=== PATIENT | female | born 2000 | race Caucasian/White ===

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

== ENCOUNTER → 2021-02-09 02:00 | Outpatient (CLI) | payer OTHER, SELFPAY ==
[2021-02-09 19:43] LABS: SARS-CoV-2 RNA PCR Negative
== END ==
PROVIDERS: PCP Pediatrics Adolescent Medicine; Visit Provider Internal Medicine Gastroenterology
DX: Z01.812 Encounter for preprocedural laboratory examination (principal); Z20.822 Contact with and (suspected) exposure to COVID-19
CPT/HCPCS: C9803; U0003; U0005

== ENCOUNTER 2021-02-12 02:29 | Day surgery (SDC) | payer OTHER, SELFPAY ==
[2021-01-31 15:30] VITALS: BMI 30.8
[2021-02-12 09:44] VITALS: BP 109/60; PULSE 56; RESP 18; TEMP 36.1; O2SAT 99; BMI 30.4
--- NOTE | 2021-02-12 09:51 | P.PNAN_ITS ---
Anes - Initial Pre Proc Eval Procedure: Operation Date: 02/12/21 11:00 Proposed Procedures p Esophagogastroduodenoscopy - Evan Villa MD Date/Time: 02/12/21 09:51 Surgeon: Evan Villa MD Pre Op Diagnosis: epigastric pain Patient Data Age: 20 Gender: F Height: 1.6 m Weight: 77.9 kg Last Vital Signs Temp 36.1 C L 02/12/21 09:44 Pulse 56 L 02/12/21 09:44 Resp 18 02/12/21 09:44 BP 109/60 02/12/21 09:44 Pulse Ox 99 02/12/21 09:44 Allergies Allergy/AdvReac Type Severity Reaction Status Date / Time Penicillins Allergy Unknown Rash Verified 02/12/21 09:43 Home Medications Medication Instructions Recorded Confirmed Type drospirenone-ethinyl estradiol 1 tablet PO DAILY 01/31/21 01/31/21 History [Jasmin (28)] omeprazole 40 mg PO DAILY 01/31/21 01/31/21 History Patient hx anesthesia problems: none Family hx anesthesia problems: none [facility] Past Medical History Medical History (Updated 02/11/21 @ 09:43 by Salvatore Rodas DO) GERD (gastroesophageal reflux disease) Social History Social History (Updated 06/26/20 @ 19:36 by Umer Alamo PA-C) Smoking status: Never smoker Living arrangements: with family Gender identity (if verbalized by the patient): Female Spiritual care concerns: No Anes - Eval Final PreProcedure Day of Procedure 02/12/21 09:51 Patient weight: obese Heart: regular rate and rhythm Lungs: clear to auscultation and normal air movement Airway: Mallampati scale class 1 Neurological: alert and oriented Last oral intake: >/= 8 hours ASA classification: II Emergent: no Anesthetic plan: proceed Anesthesia type and monitoring: general GIVS and standard monitoring Informed Consent: The patient's anesthetic plan and its attendant risks and benefits were discussed with the patient/family/POA. Questions were solicited and answers provided to the satisfaction of the patient/family/POA.
[2021-02-12] MEDS: LACTATED RINGERS 1,000 ML 150 ML IV CONT (10:00)
--- NOTE | 2021-02-12 10:19 | WPDGICN ---
Assessment and Plan Assessment and plan (1) Epigastric abdominal pain: Code(s): R10.13 - Epigastric pain Status: Acute Assessment and Plan: Three month history of epigastric pain. This most consistent with dyspepsia. Agree with acid suppression and anti-reflux measures bland diet. Plan is for EGD to assess more thoroughly. Further recommendations will be given after endoscopy. GI Consult Note Consult date/time: 02/12/21 10:19 HPI: Keya Lee is a 20 year old female Presents for evaluation of epigastric pain. Patient describes a 3 month duration of midepigastric burning pain. Somewhat worse on taking eliminate. She has recently a limited dated ascitic drinks. She has not tried Tums or Rolaids. However was prescribed [id number] acid suppression currently omeprazole 40 mg p.o. daily. She states this has helped her pain improved. She denies any weight loss or bleeding. She presents today for EGD. During this interval of time is present emergency room with no other obvious explanation for her discomfort. Family history is noncontributory. Review of Systems Review of Systems: All systems reviewed & are unremarkable except as noted in HPI and below PMFSH Past Medical History Medical History (Updated 02/12/21 @ 10:21 by Evan Villa MD) GERD (gastroesophageal reflux disease) Social History Social History (Updated 06/26/20 @ 19:36 by Umer Alamo PA-C) Smoking status: Never smoker Living arrangements: with family Gender identity (if verbalized by the patient): Female Spiritual care concerns: No Meds Home Medications and Allergies Home Medications Medication Instructions Recorded Confirmed Type drospirenone-ethinyl estradiol 1 tablet PO DAILY 01/31/21 01/31/21 History [Jasmin (28)] omeprazole 40 mg PO DAILY 01/31/21 01/31/21 History Allergies Allergy/AdvReac Type Severity Reaction Status Date / Time Penicillins Allergy Unknown Rash Verified 02/12/21 09:43 Vital Signs Vital Signs - 24 hr 02/12/21 09:44 Temperature 97 F L Pulse Rate 56 L Respiratory Rate 18 Blood Pressure 109/60 Pulse Oximetry 99 Exam Narrative: Exam Narrative: Physical exam reveals patient be alert. Vital signs stable. HEENT exam is unremarkable. Lungs are clear to auscultation and percussion. Heart is without murmur or extra sounds. Abdominal exam bowel sounds are present soft nontender with no organomegaly. Digital external rectal exam is deferred.
[2021-02-12 10:39] VITALS: BP 107/69; PULSE 72; RESP 22; O2SAT 100
[2021-02-12 10:49] VITALS: BP 120/65; PULSE 70; RESP 12; O2SAT 100
[2021-02-12 10:59] VITALS: BP 121/57; PULSE 49; RESP 19; O2SAT 100
== END 2021-02-12 11:15 | disposition home or self-care (01) ==
PROVIDERS: PCP Nurse Practitioner Family; Visit Provider Internal Medicine Gastroenterology
PROC: 0DJ08ZZ Inspection of Upper Intestinal Tract, Via Natural or Artificial Opening Endoscopic (ICD-10-PCS; CPT 43235; principal; 2021-02-12 11:00)
DX: R10.13 Epigastric pain (principal); K21.9 Gastro-esophageal reflux disease without esophagitis
CPT/HCPCS: 43239; 87081; C9803; J2001; J2704; J7120; U0003; U0005

== ENCOUNTER 2021-02-25 09:51 | Emergency (ER) | payer OTHER, SELFPAY ==
--- NOTE | ~2021-02-25 | CT_ITS ---
EXAMINATION: CT abdomen pelvis w con DATE: 02/25/2021 11:16 INDICATION: Right lower quadrant abdominal pain. Nausea and vomiting. TECHNIQUE: Computed tomography (CT) of the abdomen and pelvis was performed with 100 mL Omnipaque 350 intravenous contrast. Automated exposure control and iterative reconstruction technique were employe d. The dose-length product was 509.70 mGy-cm. COMPARISON: None. FINDINGS: The visualized portions of the lung bases are clear without pneumonia or pleural effusion. The heart size is normal. No pericardial effusion. The liver and gallbladder are normal. There is a 6 mm cyst in the spleen. The pancreas, adrenal glands, and left kidney are normal. There is a striated nephrogram involving right kidney, consistent with pyelonephritis. There are no dilated loops of bow el. The appendix is normal. There is trace ascites. There are no pathologically enlarged lymph nodes. The bones are unremarkable. IMPRESSION: 1. Right-sided pyelonephritis. Reviewed, dictated and finalized at location A.
[2021-02-25 09:57] VITALS: BP 145/90; PULSE 102; RESP 18; TEMP 36.6; O2SAT 100
--- NOTE | 2021-02-25 10:11 | ED.ABDPAIN ---
HPI - Abdominal Pain General Chief Complaint: Abdominal Pain Stated Complaint: rt abd and rt flank pain, n/v Time Seen by Provider: 02/25/21 10:06 Source: patient and family Mode of arrival: ambulatory Limitations: no limitations History of Present Illness HPI narrative: Patient is 20 years old white female presents with right lower quadrant pain radiating to right flank started on February 22, intermittent, patient denies any fever, or chills. Patient was nauseated and vomited once 2 days ago. No nausea or vomiting yesterday or today. Last bowel movement 5 days ago, last menstrual period over 1 month ago. Patient denies any vaginal bleeding or discharge. Related Data Home Medications Medication Instructions Recorded Confirmed drospirenone-ethinyl estradiol 1 tablet PO DAILY 01/31/21 01/31/21 [Jasmin (28)] omeprazole 40 mg PO DAILY 01/31/21 01/31/21 Allergies Allergy/AdvReac Type Severity Reaction Status Date / Time Penicillins Allergy Unknown Rash Verified 02/25/21 10:10 Review of Systems Review of Systems: Narrative: CONSTITUTIONAL: Denies fever, chills, or sweats. EYES: Denies visual changes, redness, or discharge. ENT: Denies rhinorrhea, congestion, sore throat, or otalgia. CARDIOVASCULAR: Denies chest pain, palpitations, or edema. RESPIRATORY: Denies cough or dyspnea. GASTROINTESTINAL: Denies abdominal pain, nausea, vomiting, or diarrhea. GENITOURINARY: Denies dysuria or hematuria. SKIN: Denies rash or itching. MUSCULOSKELETAL: Denies back pain, joint pain, or myalgia. NEUROLOGIC: Denies headache, numbness, or weakness. PSYCHIATRIC: Denies anxiety or depression. PMFSH Past Medical History Medical History GERD (gastroesophageal reflux disease) Social History Social History Smoking status: Never smoker Gender identity (if verbalized by the patient): Female Spiritual care concerns: No Exam Narrative: Exam Narrative: General appearance: Well-developed, well-nourished, does not look in pain, her mother at the bedside Skin: Normal color Head: Normocephalic, nontraumatic Eyes: Clear conjunctiva ENT: Oropharynx normal, ears normal, nose normal Neck: Supple, nontender Chest and respiratory: Airway patent, no respiratory distress, no accessory muscle use Heart: Regular rate/rhythm Abdomen: Soft, severe tenderness right lower quadrant with guarding, and right flank. Vascular: Normal peripheral pulses, normal capillary refill. Musculoskeletal: Normal range of motion, nontender back Neurologic: Alert and oriented ?3, [employer] is normal as tested, no gross motor deficit Course Course Emergency Course: Stable Reevaluation(s) Reevaluation #1: Currently patient is asymptomatic after IV fluids and morphine. Blood work-up and CT scan of the abdomen pelvis showed pyelonephritis. Rocephin 1 g IV ordered. Patient will be discharged home. No fever, normal white count, no nausea or vomiting, patient looks comfortable and asymptomatic at this time. Date: 02/25/21 Time: 12:34 Vital Signs Vital signs: Vital Signs Temperature 36.6 C 02/25/21 09:57 Pulse Rate 102 H 02/25/21 09:57 Respiratory Rate 18 02/25/21 09:57 Blood Pressure 145/90 H 02/25/21 09:57 Pulse Oximetry 100 02/25/21 09:57 Temperature 36.6 C 02/25/21 09:57 Pulse Rate 80 02/25/21 12:08 Respiratory Rate 16 02/25/21 12:08 Blood Pressure 119/70 02/25/21 12:08 Pulse Oximetry 100 02/25/21 12:08 MDM - Abdominal Pain MDM Narrative Medical decision making narrative: Patient presents with right lower quadrant pain. My differential diagnosis as below.
[2021-02-25 10:46] LABS: Basophils Percent Auto 0.1 % (0.2-1.2); Eosinophils Percent Auto 0.1 % (0-4.4); Hematocrit 39.8 % (37.0-47.0); Hemoglobin 13.7 g/dL (12.0-15.0); Immature Granulocyte Absolute 0.04 K/mm3 (0.00-0.031); Immature Granulocyte Percent A 0.4 % (0-0.5); Lymphocytes Absolute Auto 1.06 K/mm3 (0.9-3.2); Mean Corpuscular HGB Conc 34.4 g/dl (32-36); Mean Corpuscular Hemoglobin 29.9 pg (26-34); Mean Corpuscular Volume 86.9 fl (80-100); Monocytes Absolute Auto 0.8 K/mm3 (0.1-0.6); Monocytes Percent Auto 8.5 % (2.6-8.5); Neutrophils Absolute Auto 7.7 K/mm3 (1.3-6.7); Neutrophils Percent Auto 79.9 % (45.5-73.1); Platelet Count Result 186 k/mm3 (150-375); Red Blood Count 4.58 M/mm3 (4.2-5.4); Red Cell Distribution Width 12.4 % (11.5-14.5); White Blood Count 9.7 K/mm3 (4.5-10.0)
[2021-02-25 10:54] LABS: Add Urine Microscopic? YES; Appearance Urine Cloudy (Clear); Bacteria Urine Trace /hpf; Bilirubin Urine 1+ (Negative); Blood Urine 1+ (Negative); Color Urine Amber (Yellow); Glucose Urine UA Negative (Negative); Ketones Urine 1+ mg/dL (Negative); Leukocyte Esterase Ur 3+ LEU/UL (Negative); Mucus Urine Heavy /lpf; Nitrate Urine Positive (Negative); Protein Urine 2+ mg/dL (Negative); Squamous Epithelial Cell Urine Moderate /hpf (Few); WBC Urine >75 /hpf
[2021-02-25 10:56] LABS: Alanine Aminotransferase 27 U/L (4-35); Albumin Level 4.1 g/dL (3.7-5.6); Alkaline Phosphatase 84 U/L (45-116); Anion Gap 11 mmol/L (8-16); Aspartate Amino Transferase 34 U/L (14-36); Bilirubin,Total 1.5 mg/dL (0.2-1.3); Blood Urea Nitrogen 7 mg/dL (8-21); Calcium 9.1 mg/dL (8.9-10.7); Carbon Dioxide 21 mmol/L (22-30); Chloride 103 mmol/L (98-107); Estimated CRCL calculation 110 ml/min; Estimated Glomerular Filt Rate > 60; Glucose 98 mg/dL (65-105); Lipase 31 U/L (23-300); Sodium 135 mmol/L (134-143)
[2021-02-25] MEDS: MORPHINE SULFATE (*CRX) 4 MG/ML INJ IV PUSH (10:57)
[2021-02-25] MEDS: SODIUM CHLORIDE 0.9% IV 1,000 ML 999 ML IV CONT (10:57)
[2021-02-25] MEDS: ONDANSETRON INJ 4 MG/2 ML VIAL IV PUSH (10:57)
[2021-02-25 10:58] VITALS: BP 124/64; PULSE 79; RESP 16; O2SAT 100
[2021-02-25 12:08] VITALS: BP 119/70; PULSE 80; RESP 16; O2SAT 100
[2021-02-25 13:16] VITALS: BP 126/72; PULSE 76; RESP 18; O2SAT 100
== END 2021-02-25 13:18 | disposition home or self-care (01) ==
PROVIDERS: Emergency Provider Emergency Medicine; PCP Nurse Practitioner Family
DX: N10 Acute pyelonephritis (principal); K21.9 Gastro-esophageal reflux disease without esophagitis
CPT/HCPCS: 36415; 74177; 80053; 81001; 81025; 83690; 85025; 87077; 87086; 87088; 87186; 96361; 96365; 96375; 99284; J0696; J2270; J2405; J7030; Q9967